=== PATIENT | male | born 1980 | race Caucasian/White ===

== ENCOUNTER 2024-11-23 07:24 | Day surgery (SDC) | payer OTHER ==
[~2024-11-23] VITALS: Ht 185.4 cm; Wt 152.9 kg
[~2024-11-23 07:24] MED LIST: CALCIUM CARB500 MG PO; CITALOPRAM40 MG PO; FLORASTOR250 M1 PO; LEVOTHYROXIN50 MCG PO; LEVOTHYROXINE PO; LIPITOR20 M1 PO; LITHIUM PO; TRAZODONE HCL50 MG PO; [UNRECOGNIZED DRUG - OTHER]
[2024-11-23] MEDS ORDERED: SODIUM CHLORIDE 0.9% 1,000 ML IV ONE (07:36)
[2024-11-23] MEDS ORDERED: FAMOTIDINE 10MG/ML 2ML SDV IV ONE (07:36)
[2024-11-23] MEDS ORDERED: OMEPRAZOLE20 MG PO (08:56)
[2024-11-23 09:41] VITALS: BP 116/68
[2024-11-23] MEDS ORDERED: GLYCOPYRROLATE 0.2 MG/ML IV ONE (15:21)
[2024-11-23] MEDS ORDERED: LIDOCAINE HCL 2% 2ML SDV IV ONE (15:21)
[2024-11-23] MEDS ORDERED: PROPOFOL 200 MG/20 ML VIAL IV ONE (15:21)
== END 2024-11-23 09:35 | disposition home or self-care (01) | DRG 641 ==
LOC: ORM 07:24
PROVIDERS: ATTEND Surgery
PROC: 0DBN8ZX Excision of Sigmoid Colon, Via Natural or Artificial Opening Endoscopic, Diagnostic (ICD-10-PCS; principal; 2024-11-23)
PROC: 0DB98ZX Excision of Duodenum, Via Natural or Artificial Opening Endoscopic, Diagnostic (ICD-10-PCS; 2024-11-23)
PROC: 0DB78ZX Excision of Stomach, Pylorus, Via Natural or Artificial Opening Endoscopic, Diagnostic (ICD-10-PCS; 2024-11-23)
DX: R63.4 Abnormal weight loss (principal); R19.5 Other fecal abnormalities; K29.80 Duodenitis without bleeding; K29.50 Unspecified chronic gastritis without bleeding; K44.9 Diaphragmatic hernia without obstruction or gangrene; K64.8 Other hemorrhoids; E03.9 Hypothyroidism, unspecified; E78.5 Hyperlipidemia, unspecified
CPT/HCPCS: J1596